=== PATIENT | female | born 1935 | race Caucasian/White ===

== ENCOUNTER 2016-03-16 18:37 | Emergency (ER) | payer MEDICARE ==
--- NOTE | 2016-03-16 19:06 | Emergency Department Report ---
Chief Complaint: Nausea/Vomiting/Diarrhea Stated Complaint: FEVER/N/V/DIZZY/WEAK Time Seen by Provider: 03/16/16 19:04 - HPI History of Present Illness: 80 y/o female complain of fever and chills x 3-4 days.pt c/o diarrhea x 2 days .complain of mild abdominal pain x1 day.pt taken without any relief - ROS Review of Systems: per HPI - Exam Vital Signs: Vital Signs 03/16/16 18:45 Temperature 97.6 F Pulse Rate 69 Respiratory 18 Rate Blood Pressure 141/67 O2 Sat by Pulse 100 Oximetry Physical Exam: GENERAL: The patient is well-developed and well-nourished. Patient is in NAD. HENT: Normocephalic. Atraumatic. Patient has moist mucous membranes. Throat: No erythema, swelling or exudates. Ears:Tympanic membranes pearly chowdhury ,intact , and free of exudate and erythema . EYES: Extraocular motions are intact, PERRL NECK: Supple. No meningitic signs are noted. There is no adenopathy noted. CHEST/LUNGS: Clear to auscultation bilaterally. No wheezing, rales or rhonchi noted. There is no respiratory distress noted. HEART/CARDIOVASCULAR: Regular rate and rhythm. Normal S1 S2. No murmurs, rubs , clicks, or gallops. ABDOMEN: Abdomen is soft, nontender.. Bowel sounds normoactive. There is no abdominal distention. Negative rebound tenderness. : Deferred. SKIN: There is no rash. There is no edema. There is no diaphoresis.Normal skin turgor NEURO: The patient is A&Ox3. The patient has no focal neurologic deficits. MUSCULOSKELETAL: There is no tenderness or deformity. There is no limitation range of motion. posture erect.Spine aligned,no deformities. PSYCH: Pt has appropriate mood and affect. MSE screening note: Focused history and physical exam performed. Due to findings the following was ordered: ED Disposition for MSE Condition: Stable
[2016-03-16 19:49] LABS: Basophils % (Auto) 0.2 % (0.0-1.8); Eosinophils % (Auto) 0.1 % (0.0-4.3); Hematocrit 39.2 % (30.3-42.9); Mean Corpuscular HGB Conc 33 % (30-34); Mean Corpuscular Hemoglobin 30 pg (28-32); Mean Corpuscular Volume 91 fl (79-97); Platelet Count 249 K/mm3 (140-440); Red Blood Count 4.29 M/mm3 (3.65-5.03); Red Cell Distribution Width 13.6 % (13.2-15.2); White Blood Count 9.6 K/mm3 (4.5-11.0)
[2016-03-16 20:11] LABS: Anion Gap 19 mmol/L; Blood Urea Nitrogen 12 mg/dL (7-17); Carbon Dioxide 22 mmol/L (22-30); Chloride 101.8 mmol/L (98-107); Glucose 149 mg/dL (65-100); Potassium 3.2 mmol/L (3.6-5.0); Sodium 140 mmol/L (137-145)
[2016-03-16 20:12] LABS: Creatine Kinase 43 units/L (30-135)
[2016-03-16 20:15] LABS: Creatine Kinase MB < 1.0 ng/mL (0.0-4.0)
[2016-03-16] MEDS ORDERED: K-DUR PO ONE (21:17)
[2016-03-16] MEDS ORDERED: PROTONIX IV ONE (21:23)
[2016-03-16] MEDS ORDERED: ZOFRAN IV ONE (21:23)
[2016-03-16] MEDS ORDERED: NACL 0.9% 1000 ML 1,000 ML IV ONE (21:23)
[2016-03-16] MEDS ORDERED: ALUM-MAG HYDROX-SIMETH 200-200-20MG/5ML PO ONE (21:24)
[2016-03-16] MEDS ORDERED: BENTYL IM ONE (21:24)
[2016-03-16] MEDS ORDERED: NACL ONE (21:30)
--- NOTE | 2016-03-16 21:34 | Emergency Department Report ---
ED Abdominal Pain HPI - General Chief Complaint: Nausea/Vomiting/Diarrhea Stated Complaint: FEVER/N/V/DIZZY/WEAK Time Seen by Provider: 03/16/16 21:17 Source: family Mode of arrival: Wheelchair Limitations: Language Barrier - History of Present Illness Initial Comments: 80-year-old female with past medical history hypertension presents to the hospital complaining of fever, chills, and abdominal pain for the past 3-4 days. Patient has been having intermittent diarrhea, epigastric pain, nausea and vomiting. Patient taking Nexium without relief. Pain is in the epigastric area rated 6/10 in intensity, intermittent, aggravated alleviating factors. The patient has the pain it is a severe worsening movement and associated with diaphoresis. Family states patient having chills and shakes and feeling warm at home but they did not take her temperature. No reports of hematochezia, hematemesis, melena, or previous abdominal surgeries. Patient did receive her flu shot. Denies any respiratory symptoms. PMD: Dr. Mane - Related Data Previous Rx's Medication Instructions Recorded Last Taken Type Esomeprazole Magnesium [Nexium 22.3 mg PO DAILY #30 capsule. 03/16/16 Unknown Rx 24Hr] Mag Hydrox/Al Hydrox/Simeth 20 ml PO QID PRN #1 bottle 03/16/16 Unknown Rx [Maalox Advanced Suspension] Ondansetron [Zofran Odt] 4 mg PO Q8HR PRN #20 tab.rapdis 03/16/16 Unknown Rx traMADol [Ultram 50 MG tab] 50 mg PO Q6HR PRN #20 tablet 03/16/16 Unknown Rx Allergies Allergy/AdvReac Type Severity Reaction Status Date / Time No Known Allergies Allergy Unverified 03/16/16 18:51 ED Review of Systems ROS: Stated complaint: FEVER/N/V/DIZZY/WEAK Other details as noted in HPI Comment: All other systems reviewed and negative Other: Constitutional: As per HPI Eyes: No eye pain visual changes ENT: No ear pain or throat pain Neck: Denies pain Respiratory: Denies cough wheezing shortness of breath Cardiovascular: Denies chest pain, palpitations, syncope GI: As per HPI : Denies dysuria, urinary frequency, or urgency Musculoskeletal: Denies back pain, joint swelling Skin: Denies rash, lesions, erythema Neurologic: Denies headache, numbness, weakness Psychiatric: Denies suicidal ideation, hallucinations ED Past Medical Hx - Past Medical History Hx Hypertension: Yes - Surgical History Past Surgical History?: No - Social History Smoking Status: Never Smoker Substance Use Type: None - Medications Home Medications: Home Medications Medication Instructions Recorded Confirmed Last Taken Type Esomeprazole Magnesium [Nexium 22.3 mg PO DAILY #30 capsule. 03/16/16 Unknown Rx 24Hr] Mag Hydrox/Al Hydrox/Simeth 20 ml PO QID PRN #1 bottle 03/16/16 Unknown Rx [Maalox Advanced Suspension] Ondansetron [Zofran Odt] 4 mg PO Q8HR PRN #20 tab.rapdis 03/16/16 Unknown Rx traMADol [Ultram 50 MG tab] 50 mg PO Q6HR PRN #20 tablet 03/16/16 Unknown Rx ED Physical Exam - General Limitations: Language Barrier - Other Other exam information: General: No limitations, patient is alert in no acute distress Head exam: Atraumatic, normocephalic Eyes exam: Normal appearance ENT: Moist mucous membrane, normal oropharynx Neck exam: Normal inspection, full range of motion, no meningismus nontender Respiratory exam: Clear to auscultation bilateral, no wheezes, rales, crackles Cardiovascular: Normal rate and rhythm, normal heart sounds Abdomen: Soft, nondistended, mild epigastric tenderness, with normal bowel sounds, no rebound, or guarding Extremity: Full range of motion normal inspection no deformity Back: Normal Inspection, full range of motion, no tenderness Neurologic: Alert, oriented x3, cranial nerves intact, no motor or sensory deficit Psychiatric: normal affect, normal mood Skin: Warm, dry, intact ED Course Vital Signs 03/16/16 03/16/16 18:45 21:26 Temperature 97.6 F 99.0 F Pulse Rate 69 80 Respiratory 18 18 Rate Blood Pressure 141/67 Blood Pressure 148/67 [Right] O2 Sat by Pulse 100 95 Oximetry - Reevaluation(s) Reevaluation #1: 03/17/16 00:11 pt feels better with ed tx. she received Zofran, Bentyl, Maalox, and normal saline 03/17/16 00:11 ED Medical Decision Making - Lab Data Result diagrams: 03/16/16 19:34 03/16/16 19:34 Lab Results 03/16/16 03/16/1617 Range/Units 19:34 19:34 19:34 WBC 9.6 (4.5-11.0) K/mm3 RBC 4.29 (3.65-5.03) M/mm3 Hgb 13.0 (10.1-14.3) gm/dl Hct 39.2 (30.3-42.9) % MCV 91 (79-97) fl MCH 30 (28-32) pg MCHC 33 (30-34) % RDW 13.6 (13.2-15.2) % Plt Count 249 (140-440) K/mm3 Lymph % (Auto) 16.1 (13.4-35.0) % [place] % (Auto) 11.2 H (0.0-7.3) % Eos % (Auto) 0.1 (0.0-4.3) % Baso % (Auto) 0.2 (0.0-1.8) % Lymph # 1.5 (1.2-5.4) K/mm3 [place] # 1.1 H (0.0-0.8) K/mm3 Eos # 0.0 (0.0-0.4) K/mm3 Baso # 0.0 (0.0-0.1) K/mm3 Seg Neutrophils % 72.4 H (40.0-70.0) % Seg Neutrophils # 6.9 (1.8-7.7) K/mm3 Sodium 140 (137-145) mmol/L Potassium 3.2 L (3.6-5.0) mmol/L Chloride 101.8 (98-107) mmol/L Carbon Dioxide 22 (22-30) mmol/L Anion Gap 19 mmol/L BUN 12 (7-17) mg/dL Creatinine 0.5 L (0.7-1.2) mg/dL Estimated GFR > 60 ml/min BUN/Creatinine Ratio 24.00 % Glucose 149 H (65-100) mg/dL Calcium 9.0 (8.4-10.2) mg/dL Total Bilirubin (0.1-1.2) mg/dL Direct Bilirubin (0-0.2) mg/dL Indirect Bilirubin mg/dL AST (5-40) units/L ALT (7-56) units/L Alkaline Phosphatase (35-129) units/L Total Creatine Kinase (30-135) units/L CK-MB (CK-2) (0.0-4.0) ng/mL CK-MB (CK-2) Rel Index (0-4) Troponin T < 0.010 (0.00-0.029) ng/mL Total Protein (6.3-8.2) g/dL Albumin (3.9-5) g/dL Albumin/Globulin Ratio % Amylase 106 (27-131) units/L Urine Color (Yellow) Urine Turbidity (Clear) Urine pH (5.0-7.0) Ur Specific [place] (1.003-1.030) Urine Protein (Negative) mg/dL Urine Glucose (UA) (Negative) mg/dL Urine Ketones (Negative) mg/dL Urine Blood (Negative) Urine Nitrite (Negative) Urine Bilirubin (Negative) Urine Urobilinogen (<2.0) mg/dL Ur Leukocyte Esterase (Negative) Urine WBC (Auto) (0.0-6.0) /HPF Urine RBC (Auto) (0.0-6.0) /HPF U Epithel Cells (Auto) (0-13.0) /HPF Urine Mucus /HPF 03/16/16 03/16/16 03/16/16 Range/Units 19:34 19:34 22:58 WBC (4.5-11.0) K/mm3 RBC (3.65-5.03) M/mm3 Hgb (10.1-14.3) gm/dl Hct (30.3-42.9) % MCV (79-97) fl MCH (28-32) pg MCHC (30-34) % RDW (13.2-15.2) % Plt Count (140-440) K/mm3 Lymph % (Auto) (13.4-35.0) % [place] % (Auto) (0.0-7.3) % Eos % (Auto) (0.0-4.3) % Baso % (Auto) (0.0-1.8) % Lymph # (1.2-5.4) K/mm3 [place] # (0.0-0.8) K/mm3 Eos # (0.0-0.4) K/mm3 Baso # (0.0-0.1) K/mm3 Seg Neutrophils % (40.0-70.0) % Seg Neutrophils # (1.8-7.7) K/mm3 Sodium (137-145) mmol/L Potassium (3.6-5.0) mmol/L Chloride (98-107) mmol/L Carbon Dioxide (22-30) mmol/L Anion Gap mmol/L BUN (7-17) mg/dL Creatinine (0.7-1.2) mg/dL Estimated GFR ml/min BUN/Creatinine Ratio % Glucose (65-100) mg/dL Calcium (8.4-10.2) mg/dL Total Bilirubin 0.9 (0.1-1.2) mg/dL Direct Bilirubin 0.4 H (0-0.2) mg/dL Indirect Bilirubin 0.5 mg/dL AST 77 H (5-40) units/L ALT 26 (7-56) units/L Alkaline Phosphatase 231 H (35-129) units/L Total Creatine Kinase 43 (30-135) units/L CK-MB (CK-2) < 1.0 (0.0-4.0) ng/mL CK-MB (CK-2) Rel Index 2.3 (0-4) Troponin T (0.00-0.029) ng/mL Total Protein 7.9 (6.3-8.2) g/dL Albumin 3.8 L (3.9-5) g/dL Albumin/Globulin Ratio 0.9 % Amylase (27-131) units/L Urine Color Yellow (Yellow) Urine Turbidity Clear (Clear) Urine pH 7.0 (5.0-7.0) Ur Specific [place] 1.047 H (1.003-1.030) Urine Protein <15 mg/dl (Negative) mg/dL Urine Glucose (UA) Neg (Negative) mg/dL Urine Ketones Neg (Negative) mg/dL Urine Blood Mod (Negative) Urine Nitrite Neg (Negative) Urine Bilirubin Neg (Negative) Urine Urobilinogen < 2.0 (<2.0) mg/dL Ur Leukocyte Esterase Neg (Negative) Urine WBC (Auto) 1.0 (0.0-6.0) /HPF Urine RBC (Auto) 3.0 (0.0-6.0) /HPF U Epithel Cells (Auto) 3.0 (0-13.0) /HPF Urine Mucus Few /HPF - EKG Data -: EKG Interpreted by Me (sinus rhythm [address] elevation or T-wave inversions) - Radiology Data Radiology results: report reviewed CT abdomen and pelvis IV contrast: Burrows of the antrum of the stomach appeared to be thickened and suggesting gastritis or peptic ulcer disease. Gallbladder distention otherwise unremarkable. Small nonspecific is a change in the right ovary measuring 1.5 cm. Multiple renal cortical cysts - Medical Decision Making Plan to discharge patient home. She received IV fluids and medications in the ED with improvement in symptoms. No acute surgical or infectious condition exists at this time. Patient need outpatient GI follow-up for further evaluation including endoscopy and possible H. pylori testing. - Differential Diagnosis gastritis, gastroenteritis, PUD, pancreatitis, hepatitis, biliary colic, CA Critical Care Time: No Critical care attestation.: If time is entered above; I have spent that time in minutes in the direct care of this critically ill patient, excluding procedure time. ED Disposition Clinical Impression: Gastroenteritis, Gastritis, Right ovarian cyst Disposition: DISCHARGED TO HOME OR SELFCARE Is pt being admited?: No Does the pt Need Aspirin: No Condition: Stable Instructions: Gastritis (ED), Gastroenteritis (ED), Ovarian Cyst (ED) Additional Instructions: Take the medication as prescribed. Return if symptoms worsen. Follow with your physician. Follow-up with the GI doctor provided or with a GI doctor. Follow up with [employer] [facility] doctor for further monitoring and evaluation of your ovarian cyst. Prescriptions: Esomeprazole Magnesium [Nexium 24Hr] 22.3 mg PO DAILY #30 capsule.[address] Marcelo Hydrox/Al Hydrox/Simeth [Maalox Advanced Suspension] 20 ml PO QID PRN #1 bottle PRN Reason: Indigestion Ondansetron [Zofran Odt] 4 mg PO Q8HR PRN #20 tab.rapdis PRN Reason: Nausea And Vomiting traMADol [Ultram 50 MG tab] 50 mg PO Q6HR PRN #20 tablet PRN Reason: Pain Referrals: KD WALLACE MD [Staff Physician] - 3-5 Days (GI doctor ) JONATHAN MANE MD [Staff Physician] - 3-5 Days Time of Disposition: 00:05
--- NOTE | 2016-03-16 22:55 | Cat Scan Report ---
FINAL REPORT PROCEDURE: CT ABDOMEN PELVIS W CON TECHNIQUE: Computerized axial tomography of the abdomen and pelvis was performed after the IV injection of iodinated nonionic contrast. HISTORY: epigastric pain n,v,d fever COMPARISON: No prior studies are available for comparison. FINDINGS: Lower Lung m[place]: Scattered nonspecific ground-glass densities are present in the lung bases. No dense consolidations are seen. Upper Abdomen: The diana of the antrum of the stomach appear thickened. I cannot exclude gastritis or peptic ulcer disease. The liver is unremarkable. Gallbladder is distended otherwise unremarkable. The pancreas, adrenal glands and spleen are unremarkable. Kidneys, Ureters and Urinary bladder: Low-density nodules are seen in the renal cortex bilaterally. These all have a similar appearance and suggest small renal cortical cysts. Many of these measure under a centimeter and are difficult to characterize given their small size.. There is 1 simple appearing cyst projecting medially from the midportion of the left kidney measuring 3 centimeters which appears to represent a larger renal cortical cyst. Retroperitoneum: Atherosclerotic changes are seen in the abdominal aorta. No aneurysm is visualized. Nonspecific subcentimeter lymph nodes are seen in the retroperitoneum. No pathologically enlarged lymph nodes are identified. Bowel: With the exception of the antrum of the stomach bowel loops otherwise are unremarkable. Normal-appearing appendix is seen in the right lower quadrant. Reproductive organs: Uterus is unremarkable. Small nonspecific cystic change seen in the left ovary measuring 1.5 centimeter. Other: No acute bony abnormalities are identified. IMPRESSION: Diana of the antrum of the stomach appear thickened suggesting gastritis or peptic ulcer disease. Consider follow-up upper GI for further evaluation. Gallbladder is distended otherwise unremarkable. If clinically indicated gallbladder ultrasound could be performed. Small nonspecific cystic change right ovary only measuring 1.5 centimeter. Consider follow-up pelvic ultrasound 3-6 months to ensure stability. Multiple renal cortical cysts appear to be present as described.
[2016-03-16 23:26] LABS: Bilirubin,Urine NEG (Negative); Blood,Urine MOD (Negative); Ketones,Urine NEG (Negative); Leukocyte Esterase,Urine NEG (Negative); Mucus,Urine FEW /HPF; Nitrite,Urine NEG (Negative); Protein,Urine <15 mg/dL mg/dL (Negative); Urobilinogen,Urine < 2.0 mg/dL (<2.0)
[2016-03-16 23:32] LABS: Albumin 3.8 g/dL (3.9-5); Albumin/Globulin Ratio 0.9 %; Bilirubin,Direct 0.4 mg/dL (0-0.2); Bilirubin,Indirect 0.5 mg/dL; Bilirubin,Total 0.9 mg/dL (0.1-1.2); Total Protein 7.9 g/dL (6.3-8.2)
[2016-03-17 01:24] VITALS: BP 140/96
== END 2016-03-17 01:27 | disposition home or self-care (01) ==
LOC: ED 18:37
DX: K52.9 Noninfective gastroenteritis and colitis, unspecified (principal); K29.70 Gastritis, unspecified, without bleeding; N83.201 Unspecified ovarian cyst, right side; I10 Essential (primary) hypertension
CPT/HCPCS: 36415; 74177; 80048; 80074; 81001; 82150; 82550; 82553; 84484; 85025; 93005; 93010; 96361; 96372; 96374; 96375; 99284; C9113; J0500; J2405; J7030; Q9967